=== PATIENT | male | born 1960 | race Caucasian/White ===

== ENCOUNTER 2018-11-12 05:32 | Inpatient (IN) | payer BC, OTHER ==
[2018-11-12] MEDS: CEFAZOLIN 2 GM/50 ML (PMX) 50 ML IVPB (06:58)
[2018-11-12] MEDS: LACTATED RINGER'S 1,000 ML (ENTER RATE) IV (06:58)
[2018-11-12] MEDS ORDERED: MIDAZOLAM 1 MG/ML 2 ML INJ (07:00)
[2018-11-12] MEDS ORDERED: morphine 10 MG INJ (08:40)
[2018-11-12] MEDS: BUPIVACAINE 0.25% (MPF) 30 ML INJ (08:42)
[2018-11-12] MEDS: GELATIN SIZE 100 SPONGE (08:42)
[2018-11-12] MEDS: BUPIVACAINE 0.25%/EPI (SDV) 10 ML INJ (08:42)
[2018-11-12] MEDS: THROMBIN 5000 UNIT (RECOTHROM) VIAL (08:43)
[2018-11-12] MEDS: POLYMYXIN/BACITRACIN 1L IRRIG (08:43)
[2018-11-12] MEDS ORDERED: ONDANSETRON 4 MG INJ (09:38)
[2018-11-12] MEDS ORDERED: NEOSTIGMINE 3 MG/3 ML SYRINGE (09:39)
[2018-11-12] MEDS ORDERED: ETOMIDATE 20 MG INJ (09:39)
[2018-11-12] MEDS ORDERED: ROCURONIUM 50 MG INJ (09:39)
[2018-11-12] MEDS ORDERED: GLYCOPYRROLATE 0.4 MG INJ (09:39)
[2018-11-12] MEDS ORDERED: LIDOCAINE 2% (SDV) 5 ML INJ (09:39)
[2018-11-12] MEDS ORDERED: MEPERIDINE 25 MG INJ (09:54)
[2018-11-12] MEDS ORDERED: ONDANSETRON 4 MG INJ IV ×2 (10:00→10:30)
[2018-11-12] MEDS ORDERED: METOCLOPRAMIDE 10 MG INJ IV (10:00)
[2018-11-12] MEDS ORDERED: MIDAZOLAM 1 MG/ML 2 ML INJ IV (10:00)
[2018-11-12] MEDS ORDERED: HYDROmorphONE 1 MG/5 ML IV SYRINGE IV (10:00)
[2018-11-12] MEDS ORDERED: DIPHENHYDRAMINE 50 MG INJ IV (10:00)
[2018-11-12] MEDS ORDERED: hydrALAzine 20 MG INJ IV (10:00)
[2018-11-12] MEDS ORDERED: FENTAnyl 50 MCG/ML VIAL IV (10:00)
[2018-11-12] MEDS: MEPERIDINE 25 MG INJ IV (10:06)
[2018-11-12] MEDS: HYDROmorphONE 1 MG/5 ML IV SYRINGE IV ×2 (10:17→10:31)
[2018-11-12] MEDS ORDERED: BETHANECHOL 25 MG TAB PO (10:30)
[2018-11-12] MEDS ORDERED: PROCHLORPERAZINE 10 MG TAB PO (10:30)
[2018-11-12] MEDS ORDERED: ACETAMINOPHEN 325 MG TAB PO (10:30)
[2018-11-12] MEDS ORDERED: TRIMETHOBENZAMIDE 100 MG/ML VIAL IM (10:30)
[2018-11-12] MEDS ORDERED: DIAZEPAM 10 MG/2 ML SYG IM (10:30)
[2018-11-12] MEDS ORDERED: NALOXONE (0.4 MG/ML) INJ IV (10:30)
[2018-11-12] MEDS ORDERED: CEPASTAT LOZENGE MT (10:30)
[2018-11-12] MEDS ORDERED: DIPHENHYDRAMINE 50 MG CAP PO (10:30)
[2018-11-12] MEDS ORDERED: AL HYDROX/MG HYDROX/SIMETH 30 ML CUP PO (10:30)
[2018-11-12] MEDS ORDERED: NACL 0.9% 3 ML SYG IV (10:30)
[2018-11-12] MEDS: HYDROmorphONE 0.2 MG/ML PCA IV ×2 (10:41→17:25)
[2018-11-12] MEDS: DEXTROSE 5%-0.45% NACL 1,000 ML IV ×2 (11:59→20:40)
[2018-11-12] MEDS: RANITIDINE 150 MG TAB PO (20:40)
[2018-11-13] MEDS: HYDROmorphONE 0.2 MG/ML PCA IV (03:28)
[2018-11-13 05:07] LABS: HEMATOCRIT 38.1 % (42.0-52.0); HEMOGLOBIN 13.2 g/dl (14.0-18.0)
[2018-11-13 05:49] LABS: ANION GAP 6 (5-13); BLOOD UREA NITROGEN 15 mg/dl (7-20); CALCIUM 8.7 mg/dl (8.4-10.2); CARBON DIOXIDE 32 mmol/L (21-31); CHLORIDE 100 mmol/L (97-110); CREATININE 0.97 mg/dl (0.61-1.24); Estimated GFR > 60 mL/min (>60); GLUCOSE 129 mg/dl (70-220); POTASSIUM 3.8 mmol/L (3.5-5.1); SODIUM 138 mmol/L (135-144)
[2018-11-13] MEDS: LACTATED RINGER'S 1,000 ML (ENTER RATE) IV (06:00)
[2018-11-13] MEDS: DEXTROSE 5%-0.45% NACL 1,000 ML IV (06:08)
[2018-11-13] MEDS: BETHANECHOL 25 MG TAB PO (07:27)
[2018-11-13] MEDS: POTASSIUM CITRATE (SR) 5 MEQ TAB PO (08:33)
[2018-11-13] MEDS: LOSARTAN 25 MG TAB PO (08:34)
[2018-11-13] MEDS: ASCORBIC ACID 500 MG TAB PO ×2 (08:35→20:08)
[2018-11-13] MEDS: AMLODIPINE 10 MG TAB PO (08:36)
[2018-11-13] MEDS: ESCITALOPRAM 10 MG TAB PO (08:36)
[2018-11-13] MEDS: RANITIDINE 150 MG TAB PO ×2 (08:36→20:08)
[2018-11-13] MEDS: FERROUS SULFATE (EC) 325 MG TAB PO ×3 (08:36→20:07)
[2018-11-13] MEDS: DOCUSATE SODIUM 100 MG CAP PO ×2 (08:36→20:09)
[2018-11-13] MEDS: HYDROCODONE/APAP (5/325) TAB PO ×3 (08:38→20:09)
[2018-11-13 10:42] LABS: ADD UMIC YES; UR ASCORBIC ACID NEGATIVE (NEGATIVE); UR BILIRUBIN (Dip) NEGATIVE (NEGATIVE); UR BLOOD (Dip) 2+ mg/dL (NEGATIVE); UR CLARITY CLEAR (CLEAR); UR COLOR YELLOW (YELLOW); UR GLUCOSE (Dip) NEGATIVE (NEGATIVE); UR KETONES (Dip) NEGATIVE (NEGATIVE); UR LEUKOCYTE ESTERASE (Dip) TRACE Leu/ul (NEGATIVE); UR NITRITE (Dip) NEGATIVE (NEGATIVE); UR RBC 7 /HPF (0-5); UR SPECIFIC GRAVITY (Dip) 1.009 (1.003-1.030); UR TOTAL PROTEIN (Dip) NEGATIVE (NEGATIVE); UR UROBILINOGEN (Dip) NEGATIVE (NEGATIVE); UR WBC 6 /HPF (0-5)
[2018-11-13] MEDS ORDERED: hydrALAzine 20 MG INJ IV (19:00)
[2018-11-13] MEDS: DIAZEPAM 5 MG TAB PO (21:07)
[2018-11-14] MEDS: HYDROCODONE/APAP (5/325) TAB PO ×3 (06:35→20:34)
[2018-11-14] MEDS: ESCITALOPRAM 10 MG TAB PO (09:38)
[2018-11-14] MEDS: DOCUSATE SODIUM 100 MG CAP PO ×2 (09:38→20:33)
[2018-11-14] MEDS: ASCORBIC ACID 500 MG TAB PO ×2 (09:38→20:33)
[2018-11-14] MEDS: AMLODIPINE 10 MG TAB PO (09:38)
[2018-11-14] MEDS: RANITIDINE 150 MG TAB PO ×2 (09:39→20:33)
[2018-11-14] MEDS: LOSARTAN 25 MG TAB PO (09:39)
[2018-11-14] MEDS: FERROUS SULFATE (EC) 325 MG TAB PO ×3 (09:39→20:33)
[2018-11-14] MEDS: POTASSIUM CITRATE (SR) 5 MEQ TAB PO (09:40)
[2018-11-14 17:02] LABS: ADD MAN DIFF? NO
[2018-11-14 17:05] LABS: BASOPHIL # 0.1 10^3/ul (0.0-0.1); BASOPHILS % 0.8 % (0.0-2.0); EOSINOPHILS # 0.2 10^3/ul (0.0-0.5); EOSINOPHILS % 2.2 % (0.0-7.0); HEMATOCRIT 40.5 % (42.0-52.0); HEMOGLOBIN 14.2 g/dl (14.0-18.0); LYMPHOCYTES # 2.4 10^3/ul (0.8-2.9); LYMPHOCYTES % 23.3 % (15.0-51.0); MEAN CORPUSCULAR HEMOGLOBIN 31.9 pg (29.0-33.0); MEAN CORPUSCULAR HGB CONC 35.1 g/dl (32.0-37.0); MEAN PLATELET VOLUME 9.3 fl (7.4-10.4); MONOCYTE # 0.9 10^3/ul (0.3-0.9); MONOCYTES % 9.1 % (0.0-11.0); NEUTROPHIL # 6.6 10^3/ul (1.6-7.5); NEUTROPHILS % 63.9 % (39.0-77.0); PLATELET COUNT 302 10^3/UL (140-415); RED BLOOD COUNT 4.45 10^6/ul (4.70-6.10); RED CELL DISTRIBUTION WIDTH 12.8 % (11.5-14.5)
[2018-11-14 17:05] LABS: WHITE BLOOD COUNT 10.3 10^3/ul (4.8-10.8)
[2018-11-14 17:22] LABS: ADD UMIC NO; UR ASCORBIC ACID 40 mg/dL (NEGATIVE); UR BILIRUBIN (Dip) NEGATIVE (NEGATIVE); UR BLOOD (Dip) NEGATIVE (NEGATIVE); UR CLARITY CLEAR (CLEAR); UR COLOR YELLOW (YELLOW); UR GLUCOSE (Dip) NEGATIVE (NEGATIVE); UR KETONES (Dip) NEGATIVE (NEGATIVE); UR LEUKOCYTE ESTERASE (Dip) NEGATIVE Leu/ul (NEGATIVE); UR NITRITE (Dip) NEGATIVE (NEGATIVE); UR SPECIFIC GRAVITY (Dip) 1.013 (1.003-1.030); UR TOTAL PROTEIN (Dip) NEGATIVE (NEGATIVE); UR UROBILINOGEN (Dip) NEGATIVE (NEGATIVE)
[2018-11-14] MEDS: ZOLPIDEM 5 MG TAB PO (21:28)
[2018-11-15] MEDS: HYDROCODONE/APAP (5/325) TAB PO (05:42)
[2018-11-15] MEDS: FERROUS SULFATE (EC) 325 MG TAB PO (08:21)
[2018-11-15] MEDS: POTASSIUM CITRATE (SR) 5 MEQ TAB PO (08:21)
[2018-11-15] MEDS: LOSARTAN 25 MG TAB PO (08:22)
[2018-11-15] MEDS: ESCITALOPRAM 10 MG TAB PO (08:23)
[2018-11-15] MEDS: RANITIDINE 150 MG TAB PO (08:23)
[2018-11-15] MEDS: ASCORBIC ACID 500 MG TAB PO (08:23)
[2018-11-15] MEDS: AMLODIPINE 10 MG TAB PO (08:23)
[2018-11-15] MEDS: DOCUSATE SODIUM 100 MG CAP PO (08:23)
== END 2018-11-15 09:26 | disposition home or self-care (01) | DRG 519 ==
LOC: REC 05:32 → MS1 11:42
PROC: 00NW0ZZ Release Cervical Spinal Cord, Open Approach (ICD-10-PCS; principal; 2018-11-12 07:00)
PROC: 00NX0ZZ Release Thoracic Spinal Cord, Open Approach (ICD-10-PCS; 2018-11-12 07:00)
DX: M48.02 Spinal stenosis, cervical region (principal); M50.01 Cervical disc disorder with myelopathy, high cervical region; M50.11 Cervical disc disorder with radiculopathy, high cervical region; F33.42 Major depressive disorder, recurrent, in full remission; I10 Essential (primary) hypertension; R50.82 Postprocedural fever; E78.5 Hyperlipidemia, unspecified; E66.9 Obesity, unspecified; Z87.891 Personal history of nicotine dependence
CPT/HCPCS: 71045; 72020; 80048; 81001; 81003; 85014; 85018; 85025; 86850; 86900; 86901; 86920; 87040-91; 87086; 88304; 88311; 97116; 97162; 97530

== ENCOUNTER 2018-11-24 17:40 | Emergency (ER) | payer BC ==
[2018-11-24 20:19] LABS: ADD MAN DIFF? NO
[2018-11-24 20:22] LABS: BASOPHIL # 0.1 10^3/ul (0.0-0.1); BASOPHILS % 0.7 % (0.0-2.0); EOSINOPHILS # 0.1 10^3/ul (0.0-0.5); EOSINOPHILS % 1.3 % (0.0-7.0); HEMATOCRIT 39.9 % (42.0-52.0); HEMOGLOBIN 13.6 g/dl (14.0-18.0); LYMPHOCYTES # 1.6 10^3/ul (0.8-2.9); LYMPHOCYTES % 19.8 % (15.0-51.0); MEAN CORPUSCULAR HEMOGLOBIN 31.5 pg (29.0-33.0); MEAN CORPUSCULAR HGB CONC 34.1 g/dl (32.0-37.0); MEAN CORPUSCULAR VOLUME 92.4 fl (82.0-101.0); MEAN PLATELET VOLUME 9.2 fl (7.4-10.4); MONOCYTE # 0.6 10^3/ul (0.3-0.9); NEUTROPHIL # 5.8 10^3/ul (1.6-7.5); NEUTROPHILS % 70.5 % (39.0-77.0); PLATELET COUNT 270 10^3/UL (140-415); RED BLOOD COUNT 4.32 10^6/ul (4.70-6.10); RED CELL DISTRIBUTION WIDTH 13.2 % (11.5-14.5)
[2018-11-24 20:22] LABS: WHITE BLOOD COUNT 8.3 10^3/ul (4.8-10.8)
[2018-11-24 20:45] LABS: ANION GAP 9 (5-13); BLOOD UREA NITROGEN 14 mg/dl (7-20); CALCIUM 8.9 mg/dl (8.4-10.2); CARBON DIOXIDE 28 mmol/L (21-31); CHLORIDE 102 mmol/L (97-110); CREATININE 0.92 mg/dl (0.61-1.24); Estimated GFR > 60 mL/min (>60); GLUCOSE 109 mg/dl (70-220); SODIUM 139 mmol/L (135-144)
[2018-11-24 20:47] LABS: C-REACTIVE PROTEIN < 0.5 mg/dl (0.0-0.9)
[2018-11-24 21:27] LABS: ERYTHROCYTE SEDIMENTATION RATE 10 mm/Hr (0-20)
== END 2018-11-24 22:05 | disposition home or self-care (01) ==
LOC: E/R 17:40
DX: T81.31XA Disruption of external operation (surgical) wound, not elsewhere classified, initial encounter (principal); I10 Essential (primary) hypertension; Y79.8 Miscellaneous orthopedic devices associated with adverse incidents, not elsewhere classified; Z87.891 Personal history of nicotine dependence; Z98.890 Other specified postprocedural states
CPT/HCPCS: 80048; 85025; 85651; 86140; 87070; 99283